=== PATIENT | male | born 1950 | race Hispanic/Latino ===

== ENCOUNTER → 2024-11-07 | Day surgery (SDC) | payer MEDICARE ==
[2024-11-01 13:44] LABS: BASOPHILS % 0.4 % (0.0-1.0); EOSINOPHILS % 1.4 % (0.0-6.0); LYMPHOCYTES % 30.7 % (18.0-39.1); MONOCYTES % 6.7 % (4.4-11.3); NEUTROPHILS % 60.5 % (38.7-80.0); RED CELL DISTRIBUTION WIDTH 15.2 % (11.7-14.4)
[2024-11-01 14:06] LABS: EST GLOMERULAR FILTRATION RATE 60.0 ML/MIN (>=60)
[~2024-11-07] MED LIST: ACETAMINOPHEN 1000 MG/100 ML 100 ML IV ONE; ACETAMINOPHEN/CODEINE 300MG - 30MG TAB ONE; CILOSTAZOL50 MG PO; CLOPIDOGREL75 MG PO; CRESTOR40 MG PO; DEXAMETHASONE SOD PHOS INJ 4 MG/ML SDV ONE; DULOXETINE HCL30 MG PO; EPHEDRINE SULFATE INJ 50 MG/ML VIAL ONE; FENTANYL CITRATE/PF 100MCG/2 ML INJ ONE; GLIPIZIDE5 MG PO; HYGROTON25 MG PO; KETOROLAC TROMETHAMINE 30 MG/ML VIAL ONE; LIDOCAINE HCL 2% LOCAL INJ 5 ML SDV VIAL INJ ONE; LISINOPRIL2.5 MG PO; METFORMIN HCL500 MG PO; MIDAZOLAM HCL 2 MG/2 ML VIAL ONE; NEURONTIN300 MG PO; NEXIUM40 MG PO; ONDANSETRON HCL INJ 2MG/ML 2ML 2 MG/ML VIAL ONE; PROPOFOL IV EMULSION 10 MG/ML 20 ML VIAL ONE
[2024-11-07] MEDS: CEFAZOLIN SODIUM 2 GM ONE (09:17)
[2024-11-07] MEDS: LACTATED RINGER'S 1,000 ML ONE (09:17)
[2024-11-07 12:01] VITALS: TEMP 98.2
[2024-11-07] MEDS: FENTANYL CITRATE/PF 100MCG/2 ML INJ IV ONE ×4 (12:20→12:35)
[2024-11-07 13:20] VITALS: BP 152/77; PULSE 66; RESP 18; O2SAT 98
[2024-11-07] MEDS: ACETAMINOPHEN/CODEINE 300MG - 30MG TAB PO ONE (13:25)
== END | disposition home or self-care (01) ==
LOC: OR 08:54
PROVIDERS: ATTEND Orthopaedic Surgery Sports Medicine
DX: M23.8X1 Other internal derangements of right knee (principal); M25.661 Stiffness of right knee, not elsewhere classified; Z96.651 Presence of right artificial knee joint; I25.810 Atherosclerosis of coronary artery bypass graft(s) without angina pectoris; I10 Essential (primary) hypertension; E78.5 Hyperlipidemia, unspecified; I25.2 Old myocardial infarction; E11.9 Type 2 diabetes mellitus without complications; Z01.810 Encounter for preprocedural cardiovascular examination; Z01.812 Encounter for preprocedural laboratory examination; Z01.818 Encounter for other preprocedural examination; Z79.02 Long term (current) use of antithrombotics/antiplatelets; Z79.84 Long term (current) use of oral hypoglycemic drugs; Z79.899 Other long term (current) drug therapy; Z95.1 Presence of aortocoronary bypass graft; Z87.891 Personal history of nicotine dependence
CPT/HCPCS: 29884; 36415 ×2; 71046; 80048; 82948; 85025; 93005; J0131; J1100; J1885; J2003; J2405; J2704; J3010; J7121; J2250